=== PATIENT | female | born 1975 | race Caucasian/White ===

== ENCOUNTER 2021-09-11 15:59 | Emergency (ER) | payer MEDICAID ==
[~2021-09-11] VITALS: Ht 167.6 cm; Wt 60.8 kg
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
--- NOTE | 2021-09-11 16:20 | NUR ---
DR PICHARDO AT BEDSIDE
--- NOTE | 2021-09-11 16:34 | NUR ---
CALLED [facility] [phone] [employer] REVIEWER #[phone] INCIDENT NUMBER [id number]
--- NOTE | 2021-09-11 16:47 | NUR ---
SCREEN WAIVER SIGNED
[2021-09-11] MEDS ORDERED: IOHEXOL-300 100 ML VIAL IV ONE ×2 (16:51→23:58)
[2021-09-11] MEDS ORDERED: MORPHINE SULFATE INJ 4 MG/ML DISP.SYRIN ONE ×3 (16:57→21:59)
[2021-09-11] MEDS ORDERED: TDAP [DIPH/PERTUSSIS/TET] 0.5 ML VIAL IM ONE ×2 (16:58→17:00)
[2021-09-11] MEDS ORDERED: MORPHINE SULFATE INJ 2 MG/ML DISP.SYRIN IV ONE ×3 (17:00→22:30)
[2021-09-11 18:03] LABS: BASOPHILS % (AUTO) 0.6 % (0.0-2.0); EOSINOPHILS % (AUTO) 2.2 % (0.0-6.0); HEMATOCRIT 39 % (33-45); HEMOGLOBIN 13.2 g/dL (11.5-14.8); LYMPHOCYTES # (AUTO) 1.8 K/uL (0.8-4.8); LYMPHOCYTES % (AUTO) 30.7 % (20.0-44.0); MEAN CORPUSCULAR HGB CONC 34 g/dl (31.0-36.0); MEAN CORPUSCULAR VOLUME 95 fL (82-100); MONOCYTES # (AUTO) 0.5 K/uL (0.1-1.30); MONOCYTES % (AUTO) 8.7 % (2.0-12.0); NEUTROPHILS # (AUTO) 3.3 K/uL (1.8-8.9); NEUTROPHILS % (AUTO) 57.8 % (43.0-81.0); PLATELET COUNT (AUTO) 278 K/uL (150-450); RED BLOOD CELL COUNT(AUTO) 4.07 MIL/uL (4.0-5.2); WHITE BLOOD COUNT (AUTO) 5.7 K/uL (4.3-11.0)
--- NOTE | 2021-09-11 18:04 | NUR ---
URINE COLLECTED AND SENT TO THE LAB
[2021-09-11 18:16] LABS: CALCIUM, SERUM 9.1 mg/dL (8.5-10.1); CREATININE 0.7 mg/dL (0.6-1.3); POTASSIUM 3.4 mmol/L (3.5-5.1)
--- NOTE | 2021-09-11 18:22 | NUR ---
PT BROUGHT BACK FROM [facility]IA [facility]
[2021-09-11 18:48] LABS: BILIRUBIN,URINE NEGATIVE (NEGATIVE); COLOR,URINE YELLOW (YELLOW); LEUKOCYTE ESTERASE ,URINE NEGATIVE (NEGATIVE); NITRITE, URINE NEGATIVE (NEGATIVE); PROTEIN,URINE NEGATIVE (NEGATIVE); UGLUCOSE NEGATIVE (NEGATIVE); UROBILINOGEN,URINE 0.2 EU/dL (0.2)
[2021-09-11 19:00] LABS: BACTERIA,URINE None seen /HPF (None Seen); SQUAMOUS EPITHELIAL CELL,UR 0-2 /HPF (None Seen); WBC,URINE 0-2 /HPF (0-3)
--- NOTE | 2021-09-11 20:59 | NUR ---
PT TAKEN TO [facility]
--- NOTE | 2021-09-11 21:09 | NUR ---
PT RETURNED TO ER BED [address] [facility]
--- NOTE | 2021-09-11 21:59 | NUR ---
[facility] CALLED FOR HIGHER LEVEL OF CARE. [facility] FA[facility]ED.
[2021-09-11] MEDS ORDERED: POTASSIUM CHLORIDE 10 MEQ TABLET.SA PO ONE (22:30)
[2021-09-11] MEDS ORDERED: CEFTRIAXONE 1GM BAG (ER ONLY) 1 GM/50 ML PIGGYBACK IV ONE (22:30)
--- NOTE | 2021-09-11 23:38 | NUR ---
PT ACCEPTED AT [facility] UNDER GUEST NUMBER FOR REPORT:
[2021-09-11] MEDS ORDERED: IV NS 0.9% 250 ML IV ONE (23:58)
[2021-09-11] MEDS ORDERED: CT SWABBABLE VALVE TRANS SET 1 EA INFUS.SET MC ONE (23:58)
[2021-09-12] MEDS ORDERED: CEFTRIAXONE 1GM BAG (ER ONLY) 50 ML IV ONE (00:01)
[2021-09-12] MEDS ORDERED: POTASSIUM CHLORIDE 10 MEQ TABLET.SA ONE (00:01)
[2021-09-12] MEDS ORDERED: MORPHINE SULFATE INJ 4 MG/ML DISP.SYRIN ONE (00:01)
--- NOTE | 2021-09-12 00:08 | NUR ---
[facility] ARRANGED WILL CALL.
--- NOTE | 2021-09-12 00:09 | NUR ---
PT TRANSPORTED TO [facility]IA [facility]
--- NOTE | 2021-09-12 01:28 | NUR ---
[facility] ETA 60-75 MINUTES.
[2021-09-12] MEDS ORDERED: diphenhydrAMINE HCL 50 MG/ML VIAL ONE (01:37)
--- NOTE | 2021-09-12 01:47 | NUR ---
REPORT GIVEN TO DESTINY AT [facility]
[2021-09-12 02:00] VITALS: BP 111/68
[2021-09-12] MEDS ORDERED: diphenhydrAMINE HCL 50 MG/ML VIAL IV ONE (02:00)
--- NOTE | 2021-09-12 02:53 | NUR ---
TRANSFERRE TO [facility] BY [facility] UNTI [address] IN STABLE CONDITION
== END 2021-09-12 03:02 | disposition short-term general hospital (02) ==
LOC: ER 16:06
DX: S02.32XA Fracture of orbital floor, left side, initial encounter for closed fracture (principal); S01.119A Laceration without foreign body of unspecified eyelid and periocular area, initial encounter; Y04.2XXA Assault by strike against or bumped into by another person, initial encounter; Y92.018 Other place in single-family (private) house as the place of occurrence of the external cause; M79.7 Fibromyalgia; R07.89 Other chest pain; Z20.822 Contact with and (suspected) exposure to COVID-19
CPT/HCPCS: 12011; 36415; 70450; 70486; 71046; 71260; 72125; 74177; 80048; 81001; 84703; 85025; 87426; 90471; 90715; 93005; 96365; 96375 ×2; 96376 ×2; 99285; C9803; J0696; J1200; J2270 ×4; J7050; Q9967 ×2

== ENCOUNTER 2021-11-17 04:06 | Emergency (ER) | payer MEDICAID, OTHER ==
[~2021-11-17] VITALS: Ht 167.6 cm; Wt 63.5 kg
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
[2021-11-17] MEDS ORDERED: IBUPROFEN 400 MG TABLET ONE (04:48)
[2021-11-17] MEDS: IBUPROFEN 400 MG TABLET PO ONE (04:50)
[2021-11-17 06:16] VITALS: BP 110/75
--- NOTE | 2021-11-17 06:16 | NUR ---
Patient discharged to home in stable condition. Written and verbal after care instructions given. Patient verbalizes understanding of instruction.
== END 2021-11-17 06:29 | disposition home or self-care (01) ==
LOC: ER 04:12
DX: S93.402A Sprain of unspecified ligament of left ankle, initial encounter (principal); M79.7 Fibromyalgia; X50.1XXA Overexertion from prolonged static or awkward postures, initial encounter; Y93.89 Activity, other specified; Y92.89 Other specified places as the place of occurrence of the external cause; Y99.8 Other external cause status
CPT/HCPCS: 73610-TC